=== PATIENT | female | born 1955 | race Caucasian/White ===

== ENCOUNTER → 2016-09-23 | Outpatient (CLI) | payer BC | END | disposition home or self-care (01) | LOC: GMA 10:37 | PROVIDERS: ATTEND Nurse Practitioner Family | DX: R53.83 Other fatigue (principal) ==

== ENCOUNTER → 2016-12-28 | Outpatient (CLI) | payer BC | END | disposition home or self-care (01) | LOC: GMA 10:16 | PROVIDERS: ATTEND Physician Assistant | DX: N39.0 Urinary tract infection, site not specified (principal) ==

== ENCOUNTER → 2017-03-01 | Outpatient (CLI) | payer BC | END | disposition home or self-care (01) | LOC: GMATM 16:46 | PROVIDERS: ATTEND Nurse Practitioner Family | DX: N39.0 Urinary tract infection, site not specified (principal) ==

== ENCOUNTER 2018-04-20 16:44 | Emergency (ER) | payer BC ==
[2018-04-20 17:00] VITALS: TEMP 97.1
[2018-04-20] MEDS ORDERED: diazePAM 2 MG TAB PO ONE (17:06)
--- NOTE | 2018-04-20 17:12 | ED.PDOC ---
History of Present Illness - General Chief Complaint: Cardiovascular Problem Stated Complaint: palpitations Time Seen by Provider: 04/20/18 17:05 Source: patient Exam Limitations: no limitations - History of Present Illness Initial Comments: Patient comes in today for heart beating hard. Patient states she has had panic attacks before and believes that is what this is. About an hour ago she finished talking to her son who is going through a divorce and having money issues. She started feeling her hear beating had and felt the blood in her ears. She denies any chest pain or shortness of breath. She had no radiation of the pain and no nausea. She states she has had panic attacks in the past and admits that 9 days ago she stopped taking her Wellbutrin suddenly. She started having more anxiety so restarted it 4 days ago but only at once a day instead of prescribed BID dosing. She admits she has had alot of increased stress with recent move here to take care of her [id number]. She also is worried about a grandson that is going on a ski trip. She went to the clinic and was sent over here to have her heart checked. She has a history of HTN and anxiety. She stopped smoking 20 years ago and has no personal history of DM or CAD. Valium in the past helped when this happened and she used to have Xanax for prn use but has not needed it for some time. Timing/Duration: 1 hour Severity: moderate Improving Factors: rest Worsening Factors: nothing Associated Symptoms: denies symptoms Allergies/Adverse Reactions: Allergies NO KNOWN ALLERGY Allergy (Unverified 10/03/14 06:27) Home Medications: Ambulatory Orders Albuterol Sulfate [Proair Hfa] 2 puff INH Q6H PRN 04/20/18 Bupropion HCl [Wellbutrin Sr] 150 mg PO DAILY 04/20/18 Lisinopril 20 mg PO DAILY 04/20/18 Review of Systems - Review of Systems Constitutional: States: no symptoms reported. Denies: chills, fever, weakness EENTM: States: no symptoms reported. Denies: eye pain, blurred vision, double vision Respiratory: States: no symptoms reported. Denies: cough, short of breath Cardiology: States: see HPI. Denies: chest pain, palpitations Gastrointestinal/Abdominal: States: no symptoms reported. Denies: abdominal pain, nausea, vomiting Genitourinary: States: no symptoms reported Musculoskeletal: States: no symptoms reported Neurological: States: anxiety Past Medical History (General) - Patient Medical History Hx Stroke: No Hx Asthma: Yes Hx Congestive Heart Failure: No Hx Hypertension: Yes Hx Diabetes: No - Vaccination History Hx Tetanus, Diphtheria Vaccination: No Hx Influenza Vaccination: Yes Hx Pneumococcal Vaccination: No - Social History Hx Tobacco Use: Yes Hx Alcohol Use: Yes - Female History Patient : No Family Medical History - Family History Mother Family History: No Known Living Status: Physical Exam - Physical Exam General Appearance: Alert, Anxious, No apparent distress Eye Exam: bilateral normal Ears, Nose, Throat: hearing grossly normal, normal ENT inspection, normal pharynx Neck: non-tender, full range of motion, supple, normal inspection Respiratory: chest non-tender, lungs clear, normal breath sounds, no respiratory distress Cardiovascular/Chest: normal peripheral pulses, regular rate, rhythm, no edema, no gallop, no JVD, no murmur Gastrointestinal/Abdominal: normal bowel sounds, non tender, soft Neurologic: no motor/sensory deficits, alert, oriented x 3 Progress - Progress Progress: 04/20/18 18:04 patient feeling much better. Will restart her medication as prescribed - Results/Orders Results/Orders: Laboratory Results WBC 7.7 K/mm3 (4.8-10.8) 04/20/18 17:17 RBC 4.64 M/mm3 (4.20-5.40) 04/20/18 17:17 Hgb 13.8 gm/dL (12.0-16.0) 04/20/18 17:17 Hct 41.1 % (36.0-47.0) 04/20/18 17:17 MCV 88.5 fl (81.0-99.0) 04/20/18 17:17 MCH 29.8 pg (27.0-31.0) 04/20/18 17:17 MCHC 33.7 g/dL (33.0-37.0) 04/20/18 17:17 RDW 12.9 % (11.5-14.5) 04/20/18 17:17 Plt Count 334 K/mm3 (130-400) 04/20/18 17:17 MPV 7.5 fl (7.40-10.4) 04/20/18 17:17 Absolute Neuts (auto) 4.50 K/uL (1.8-6.8) 04/20/18 17:17 Absolute Lymphs (auto) 2.40 K/uL (1.0-3.4) 04/20/18 17:17 Absolute Monos (auto) 0.60 K/uL (0.2-0.8) 04/20/18 17:17 Absolute Eos (auto) 0.20 K/uL (0.0-0.4) 04/20/18 17:17 Absolute Basos (auto) 0.00 K/uL (0.0-0.1) 04/20/18 17:17 Neutrophils % 57.7 % (42.0-78.0) 04/20/18 17:17 Lymphocytes % 31.3 % (20.0-50.0) 04/20/18 17:17 Monocytes % 7.4 % (2.0-9.0) 04/20/18 17:17 Eosinophils % 3.0 % (1.0-5.0) 04/20/18 17:17 Basophils % 0.6 % (0.0-2.0) 04/20/18 17:17 Sodium 138 mmol/L (135-145) 04/20/18 17:17 Potassium 3.7 mmol/L (3.6-5.0) 04/20/18 17:17 Chloride 104 mmol/L (101-111) 04/20/18 17:17 Carbon Dioxide 26 mmol/L (21-31) 04/20/18 17:17 Anion Gap 11.7 (12-18) L 04/20/18 17:17 BUN 8 mg/dL (7-18) 04/20/18 17:17 Creatinine 0.76 mg/dL (0.6-1.3) 04/20/18 17:17 BUN/Creatinine Ratio 10.5 (10-20) 04/20/18 17:17 Random Glucose 99 mg/dL (70-105) 04/20/18 17:17 Serum Osmolality 274.0 mOsm/L (275-295) L 04/20/18 17:17 Calcium 9.0 mg/dL (8.4-10.2) 04/20/18 17:17 Total Bilirubin 0.4 mg/dL (0.2-1.0) 04/20/18 17:17 AST 22 IU/L (10-42) 04/20/18 17:17 ALT 24 IU/L (10-60) 04/20/18 17:17 Alkaline Phosphatase 75 IU/L (42-121) 04/20/18 17:17 Creatine Kinase 109 IU/L (26-140) 04/20/18 17:17 CK-MB (CK-2) 1.2 ng/mL (0.0-4.4) 04/20/18 17:17 CK-MB (CK-2) % Not Reportable 04/20/18 17:17 Troponin I < 0.02 ng/mL (0.01-0.05) 04/20/18 17:17 Serum Total Protein 7.4 gm/dL (6.4-8.2) 04/20/18 17:17 Albumin 4.3 g/dl (3.2-5.5) 04/20/18 17:17 Globulin 3.1 gm/dL (2.3-3.5) 04/20/18 17:17 Albumin/Globulin Ratio 1.4 (1.1-1.9) 04/20/18 17:17 - EKG/XRAY/CT EKG: Sinus, no ST T wave changes Comments: L ant fascicular block Departure - Departure Clinical Impression: Anxiety and depression Disposition: Discharge to Home or Self Care Condition: Good Departure Forms: ED Discharge - Pt. Copy, Patient Portal Self Enrollment Instructions: DI for Chest Pain Referrals: Baldo Leach MD [Primary Care Provider] - 1-2 Weeks Home Medications: Ambulatory Orders Albuterol Sulfate [Proair Hfa] 2 puff INH Q6H PRN 04/20/18 Bupropion HCl [Wellbutrin Sr] 150 mg PO DAILY 04/20/18 Lisinopril 20 mg PO DAILY 04/20/18 Additional Instructions: follow up with PCP in clinic in 2-3 days. Return to ER for chest pain. Restart medication as prescribed
[2018-04-20 18:23] VITALS: BP 140/86; O2SAT 95
== END 2018-04-20 18:23 | disposition home or self-care (01) ==
LOC: ER 16:44
DX: F41.9 Anxiety disorder, unspecified (principal); F32.9 Major depressive disorder, single episode, unspecified; I44.4 Left anterior fascicular block; I10 Essential (primary) hypertension; J45.909 Unspecified asthma, uncomplicated; Z87.891 Personal history of nicotine dependence; Z79.899 Other long term (current) drug therapy

== ENCOUNTER → 2019-03-11 | Outpatient (CLI) | payer MEDICARE, OTHER ==
--- NOTE | 2019-03-12 15:54 | MAM ---
EXAM DESCRIPTION: 3D Screening BILATERAL : Digital Mammography. CLINICAL HISTORY: 63 years Female ANNUAL SCREENING . No complaints and no personal history of breast cancer. Mother with ovarian cancer. No remote family history of breast cancer menarche age 9. Childbirth age 16. Menopause age unknown. No HRT. Lifetime risk of developing breast cancer (Tyrer-Cuzick model)(%): 5.0. COMPARISON: 2-D digital screening bilateral mammography June 2008.. TECHNIQUE: Bilateral CC and MLO projection full-field images, digital tomosynthesis mammographic technique. Bilateral digital 2-D full-field MLO images. CAD available for 2-D images. FINDINGS: The breast parenchymal density pattern is: Scattered areas of fibroglandular density. No skin thickening or nipple retraction. Bilateral skin mole markers. Bilateral solitary microcalcifications. Bilateral axillary lymph nodes. No new focal, stellate mass or density, focal asymmetry , and no suspicious microcalcifications bilaterally. Stable mammograms compared to prior study. Taking into account, differences in mammographic technique. IMPRESSION: Benign exam. BIRAD CATEGORY: 2 BENIGN FINDINGS. RECOMMENDATIONS: FOLLOW UP: Routine digital bilateral mammographic screening, one year interval from February 2019. Written communication explaining the IMPRESSION and follow-up, will be mailed to the patient and referring health care provider. According to the [employer], yearly mammograms are recommended starting at age 40 and continuing as long as a woman is in good health. Any breast change noted on a breast self-exam should be reported promptly to the patient's healthcare provider. Breast MRI is recommended for women with an approximately 20-25% or greater lifetime risk of breast cancer, including women with a strong family history of breast or ovarian cancer and women who have been treated for Hodgkin's disease. A negative mammographic report should not delay tissue diagnosis in patients with significant clinical history or physical findings. Extremely dense breast tissue limits the sensitivity of digital mammography. Electronically signed by: Kevin Sr MD 03/12/2019 3:52 PM [employer]IST
== END ==
LOC: MAMMO 10:37
PROVIDERS: ATTEND Family Medicine
DX: Z12.31 Encounter for screening mammogram for malignant neoplasm of breast (principal)

== ENCOUNTER → 2020-01-06 | Outpatient (CLI) | payer MEDICARE, OTHER | LOC: GMA CAST 17:08 | PROVIDERS: ATTEND Family Medicine Sports Medicine | DX: N30.00 Acute cystitis without hematuria (principal) ==